=== PATIENT | male | born 1955 | race Two or more races ===

== ENCOUNTER 2023-03-13 07:10 | Outpatient (CLI) | payer OTHER | END 2023-03-13 07:17 | disposition home or self-care (01) | LOC: LAB 07:10 | PROVIDERS: ATTEND Orthopaedic Surgery | DX: D64.89 Other specified anemias (principal); E88.89 Other specified metabolic disorders; D68.8 Other specified coagulation defects; N39.0 Urinary tract infection, site not specified; A49.02 Methicillin resistant Staphylococcus aureus infection, unspecified site; Z76.89 Persons encountering health services in other specified circumstances; I49.9 Cardiac arrhythmia, unspecified; I10 Essential (primary) hypertension ==

== ENCOUNTER 2023-03-22 09:33 | Outpatient (CLI) | payer OTHER | END 2023-03-22 09:39 | disposition home or self-care (01) | LOC: RX STUDY 09:33 | PROVIDERS: ATTEND Orthopaedic Surgery | DX: M75.111 Incomplete rotator cuff tear or rupture of right shoulder, not specified as traumatic (principal) ==

== ENCOUNTER 2023-05-08 06:37 | Outpatient (CLI) | payer OTHER | END 2023-05-08 06:42 | disposition home or self-care (01) | LOC: LAB 06:37 | PROVIDERS: ATTEND Orthopaedic Surgery | DX: I49.9 Cardiac arrhythmia, unspecified (principal); I10 Essential (primary) hypertension; D64.89 Other specified anemias; E88.89 Other specified metabolic disorders; D68.8 Other specified coagulation defects; N39.0 Urinary tract infection, site not specified; Z22.322 Carrier or suspected carrier of Methicillin resistant Staphylococcus aureus; Z76.89 Persons encountering health services in other specified circumstances; M79.644 Pain in right finger(s) ==

== ENCOUNTER 2023-07-12 07:15 | Outpatient (CLI) | payer OTHER | END 2023-07-12 07:16 | disposition home or self-care (01) | LOC: NUCLEAR 07:15 | PROVIDERS: ATTEND Internal Medicine | DX: M06.4 Inflammatory polyarthropathy (principal); M88.9 Osteitis deformans of unspecified bone | CPT/HCPCS: 78315; A9503 ==